=== PATIENT | male | born 1950 | race Caucasian/White ===

== ENCOUNTER 2022-11-30 10:07 | Outpatient (OUT) | payer MEDICARE, OTHER, SELFPAY ==
[2022-11-30 10:33] LABS: Basophils Absolute Auto 0.1 10^3/uL (0.0-0.1); Basophils Percent Auto 0.9 % (0.2-2.0); Eosinophils Absolute Auto 0.1 10^3/uL (0.0-0.7); Eosinophils Percent Auto 1.9 % (0.9-7.0); Hematocrit 49.3 % (42.0-54.0); Hemoglobin 15.8 g/dL (14.0-18.0); Immature Granulocytes Abs Auto 0.05 10^3/uL (0.00-0.03); Immature Granulocytes Pct Auto 0.7 % (0.0-0.5); Lymphocytes Absolute Auto 1.5 10^3/uL (1.2-3.8); Lymphocytes Percent Auto 22.7 % (20.5-60.0); Mean Corpuscular Hemoglobin 29.1 pg (25.9-34.0); Mean Corpuscular Volume 90.8 fL (80.0-94.0); Mean Platelet Volume 10.8 fL (9.5-13.5); Monocytes Absolute Auto 0.7 10^3/uL (0.3-0.8); Neutrophils Absolute Auto 4.3 10^3/uL (1.4-6.5); Neutrophils Percent Auto 63.8 % (43.0-75.0); Platelet Count 209 10^3/uL (150-450); Red Blood Count 5.43 10^6/uL (4.70-6.10); Red Cell Distribution Width 13.4 % (11.0-15.0); White Blood Count 6.8 10^3/uL (4.0-11.0)
[2022-11-30 10:49] LABS: Microalbumin Urine Random <1.3 mg/dL (<=30.0)
[2022-11-30 11:19] LABS: Estimated Average Glucose 163 mg/dL; Glycohemoglobin A1C 7.3 % (4.5-6.2)
[2022-11-30 11:36] LABS: Alanine Aminotransferase 36 U/L (16-63); Anion Gap 10.7; BUN Creatinine Ratio 16.8; Calcium 8.7 mg/dL (8.5-10.1); Carbon Dioxide 31.2 mmol/L (21.0-32.0); Chloride 103 mmol/L (98-107); Chol HDL Ratio 3.2; Cholesterol 139 mg/dL (<=200); Estimated GFR (African America >60 (>=60); Estimated GFR (Non-African Ame 51 (>=60); Glucose 112 mg/dL (74-106); HDL Cholesterol 44 mg/dL (40-60); LDL Cholesterol Calculated 72.6 mg/dL; Potassium 3.9 mmol/L (3.5-5.1); Sodium 141 mmol/L (136-145); Triglycerides 112 mg/dL (<=150); VLDL CHOLESTEROL 22.4 mg/dL
[2022-11-30 11:47] LABS: Prostate Specific Antigen Scrn 1.86 ng/mL (<=4.00)
== END 2022-11-30 10:08 | disposition home or self-care (01) ==
PROVIDERS: PCP Internal Medicine; Visit Provider Internal Medicine
DX: E11.65 Type 2 diabetes mellitus with hyperglycemia (principal); E78.2 Mixed hyperlipidemia; I10 Essential (primary) hypertension; Z12.5 Encounter for screening for malignant neoplasm of prostate; Z79.899 Other long term (current) drug therapy
CPT/HCPCS: 36415; 80048; 80061; 82043; 83036; 84460; 85025; G0103

== ENCOUNTER 2023-07-05 11:00 | Outpatient (OUT) | payer OTHER, SELFPAY ==
[2023-07-05 12:10] LABS: Estimated Average Glucose 194 mg/dL; Glycohemoglobin A1C 8.4 % (4.5-6.2)
== END 2023-07-05 11:01 | disposition home or self-care (01) ==
LOC: LAB 11:03
PROVIDERS: PCP Internal Medicine; Visit Provider Internal Medicine
DX: E11.65 Type 2 diabetes mellitus with hyperglycemia (principal)
CPT/HCPCS: 36415; 83036

== ENCOUNTER 2023-12-13 12:01 | Outpatient (OUT) | payer OTHER, SELFPAY ==
--- OUTSIDE RECORDS SUMMARY | 2023-12-13 12:21 | XMS_ITS | CCD ---
Author Organization [facility] Care Team Providers Care Group Counselor Name Role Phone Carlos Raymundo Unavailable GAYE, DR PHOENIX Attending Unavailable GAYE, DR PHOENIX Consulting Unavailable GAYE, DR PHOENIX Primary Care Unavailable GAYE, DR PHOENIX Admitting Unavailable GAYE, DR PHOENIX Primary Care Unavailable GAYE, DR PHOENIX Admitting Unavailable GAYE, DR PHOENIX Attending Unavailable GAYE, DR PHOENIX Consulting Unavailable GAYE, DR PHOENIX Primary Care Unavailable GAYE, DR PHOENIX Admitting Unavailable GAYE, DR PHOENIX Attending Unavailable Medications Current Medications Medication Drug Class(es) Dates Sig (Normalized) Sig (Original) atorvastatin 20 mg oral tablet (9 sources) HMG-CoA Reductase Inhibitor Start: 01-07-2021 End: 09-24-2023 take 20 mg by mouth once daily Atorvastatin Active 20 MG PO Daily 90 September 24, 2023 1:58pm Start: 01-07-2021 End: 01-07-2021 Atorvastatin Discontinued MG TABLET January 07, 2021 12:00am January 07, 2021 8:15am furosemide 40 mg oral tablet (5 sources) Loop Diuretic Start: 07-02-2023 take 40 mg by mouth once daily Furosemide Active 40 MG PO Daily July 02, 2023 12:00am take 1 tablet by sonia every twenty-four hours Furosemide 40 MG 1 tablet Orally Once a day for 90 days Active glipiZIDE er 10 mg 24 hr extended release oral tablet (11 sources) Sulfonylurea Start: 07-02-2023 End: 09-24-2023 take 20 mg by mouth once daily Glipizide Active 20 MG PO Daily 180 September 24, 2023 1:58pm Start: 01-07-2021 End: 07-02-2023 take 10 mg by mouth once daily Glipizide Discontinued 10 MG PO Daily January 07, 2021 12:00am July 02, 2023 8:33am Start: 01-07-2021 End: 01-07-2021 Glipizide Discontinued MG PO January 07, 2021 12:00am January 07, 2021 8:15am glipiZIDE ER 10 MG TAKE 2 TABLETS DAILY Active linagliptin 5 mg oral tablet (1 source) Dipeptidyl Peptidase 4 Inhibitor Start: 07-07-2023 take 1 tablet by mouth once daily Linagliptin (Tradjenta) 5 mg tablet Active 5 MG PO Daily 90 July 07, 2023 12:00am losartan potassium 100 mg oral tablet (9 sources) Angiotensin 2 Receptor Jack Start: 01-07-2021 End: 07-12-2023 take 100 mg by mouth once daily Losartan Active 100 MG PO Daily 90 July 12, 2023 10:33am Start: 01-07-2021 End: 01-07-2021 Losartan Discontinued MG TAB LET January 07, 2021 12:00am January 07, 2021 8:15am metFORMIN hydrochloride 1000 mg oral tablet (10 sources) Biguanide Start: 01-07-2021 End: 07-02-2023 take 1000 mg by mouth once daily Metformin Active 1000 MG PO Daily July 02, 2023 8:32am Start: 01-07-2021 End: 01-07-2021 Metformin Discontinued MG TA BLET January 07, 2021 12:00am January 07, 2021 8:15am pioglitazone 15 mg oral tablet (9 sources) Peroxisome Proliferator Receptor alpha Agonist, Peroxisome Proliferator Receptor gamma Agonist, Thiazolidinedione Start: 01-07-2021 End: 09-24-2023 Pioglitazone Active 15 MG PO As Directed September 24, 2023 1:58pm Start: 01-07-2021 End: 01-07-2021 Pioglitazone Discontinued MG TABLET January 07, 2021 12:00am January 07, 2021 8:15am Problems Problem Classification Problem Date Documented Date Episodic/Chronic Cardiac dysrhythmias (5 sources) Paroxysmal tachycardia; Translations: [Paroxysmal tachycardia, unspecified] Chronic Chronic kidney disease (4 sources) Chronic kidney disease; Translations: [Chronic kidney disease, unspecified] 07-03-2023 Chronic Chronic ulcer of skin (5 sources) Superficial skin ulcer of lower limb; Translations: [Non-pressure chronic ulcer of unspecified part of left lower leg limited to breakdown of skin] Chronic Diabetes mellitus with complications (20 sources) Hyperglycemia due to type 2 diabetes mellitus; Translations: [Type 2 diabetes mellitus with hyperglycemia] Onset: 07-03-2022 Chronic Disorders of lipid metabolism (11 sources) Mixed hyperlipidemia; Translations: [Mixed hyperlipidemia] Onset: 12-04-2021 Chronic Essential hypertension (11 sources) Essential hypertension; Translations: [Essential (primary) hypertension] Onset: 12-04-2021 Chronic Hyperplasia of prostate (4 sources) Lower urinary tract symptoms due to benign prostatic hypertrophy; Translations: [Benign prostatic hyperplasia with lower urinary tract symptoms] Chronic Other aftercare (4 sources) H/O: high risk medication; Translations: [Other half-way (current) drug therapy] Episodic Other aftercare (2 sources) Other half-way (current) drug therapy; Translations: [OTH CORRECTION CURRENT DRUG THERAPY] Onset: 12-04-2021 Episodic Other and unspecified benign neoplasm (3 sources) Benign neoplasm of colon; Translations: [Benign neoplasm of descending colon] Episodic Other and unspecified benign neoplasm (1 source) Benign neoplasm of descending colon; Translations: [Adenomatous polyp of descending colon] Episodic Other diseases of veins and lymphatics (6 sources) Peripheral venous insufficiency; Translations: [Venous insufficiency (chronic) (peripheral)] 07-03-2023 Episodic Other diseases of veins and lymphatics (5 sources) Venous insufficiency (chronic) (peripheral); Translations: [Venous (peripheral) insufficiency, unspecified] Episodic Other nutritional; endocrine; and metabolic disorders (4 sources) Morbid obesity; Translations: [Morbid (severe) obesity due to excess calories] Chronic Other nutritional; endocrine; and metabolic disorders (1 source) Morbid (severe) obesity due to excess calories Chronic Other nutritional; endocrine; and metabolic disorders (2 sources) Obesity; Translations: [Obesity, unspecified] 07-05-2023 Chronic Other nutritional; endocrine; and metabolic disorders (2 sources) Obesity, unspecified; Translations: [Obesity, unspecified] 07-05-2023 Chronic Other screening for suspected conditions (not mental disorders or infectious disease) (10 sources) Encounter for screening, unspecified; Translations: [Encounter for screening for malignant neoplasm of prostate] Onset: 12-04-2021 Episodic Results Test Name Value Interpretation Reference Range Facility GLYCOHEMOGLOBIN A1Con 2022 ADA RECOMMENDATION SEE BELOW Normal [facility] Comment on above: Result Comment: ADA RECOMMENDED LIMIT 4.0 - 6.0 ADA THERAPEUTIC TARGET < 7.0 ACTION SUGGESTED > 7.0 Performed By: #### A 1C #### [facility] [address] [place] [address] Dr. Bc Rosas Glucose [Mass/Vol] 160 mg/dL Normal [facility] Comment on above: Performed By: #### A 1C #### [facility] [address] [place] [address] Dr. Bc Rosas HbA1c (Bld) [Mass fraction] 7.2 % Critically high 4.5-6.2 [facility] Comment on above: Performed By: #### A 1C #### [facility] [address] [place] [address] Dr. Bc Rosas MICROALBUMIN URINEon 022 Albumin, Urine 8.3 ug/mL Normal Not Estab. The [facility] Comment on above: Performed By: #### M ALBLC #### [facility] [address] [place] [address] Dr. Bc Rosas CBC AUTO DIFFon 11-27-2021 BASO # 0.1 103/ul Normal 0.0-0.1 [facility] Comment on above: Performed By: #### C BC #### [facility] [address] [place] [address] Dr. Bc Rosas Basophils/100 WBC (Bld) 1.0 % Normal 0.2-2.0 [facility] Comment on above: Performed By: #### C BC #### [facility] [address] [place] [address] Dr. Bc Rosas EO # 0.1 103/ul Normal 0.0-0.7 [facility] Comment on above: Performed By: #### C BC #### [facility] [address] [place] [address] Dr. Bc Rosas Eosinophils/100 WBC (Bld) 1.7 % Normal 0.9-7.0 [facility] Comment on above: Performed By: #### C BC #### [facility] [address] [place] [address] Dr. Bc Rosas Erythrocyte distribution width (RBC) [Ratio] 13.3 % Normal 11.0-15.0 [facility] Comment on above: Performed By: #### C BC #### [facility] [address] [place] [address] Dr. Bc Rosas Hematocrit (Bld) [Volume fraction] 47.4 % Normal 42.0-54.0 [facility] Comment on above: Performed By: #### C BC #### [facility] [address] [place] [address] Dr. Bc Rosas Hemoglobin (Bld) [Mass/Vol] 15.4 g/dL Normal 14.0-18.0 [facility] Comment on above: Performed By: #### C BC #### [facility] [address] [place] [address] Dr. Bc Rosas IG # 0.03 10e3/ul Normal 0.00-0.03 [facility] Comment on above: Performed By: #### C BC #### [facility] [address] [place] [address] Dr. Bc Rosas IG % 0.5 % Normal 0.0-0.5 [facility] Comment on above: Performed By: #### C BC #### [facility] [address] [place] [address] Dr. Bc Rosas LYMPH # 1.4 103/ul Normal 1.2-3.8 [facility] Comment on above: Performed By: #### C BC #### [facility] [address] [place] [address] Dr. Bc Rosas Lymphocytes/100 WBC (Bld) 24.0 % Normal 20.5-60.0 [facility] Comment on above: Performed By: #### C BC #### [facility] [address] [place] [address] Dr. Bc Rosas MANUAL DIFF REQ NO Normal [facility] Comment on above: Performed By: #### C BC #### [facility] [address] [place] [address] Dr. Bc Rosas MCH (RBC) [Entitic mass] 29.2 pg Normal 25.9-34.0 [facility] Comment on above: Performed By: #### C BC #### [facility] [address] [address] [address] Bc Rosas MCHC (RBC) [Mass/Vol] 32.5 g/dL Normal 29.9-35.2 [facility] Comment on above: Performed By: #### C BC #### [facility] [address] [address] [address] Bc Rosas MCV (RBC) [Entitic vol] 89.9 fL Normal 80.0-94.0 [facility] Comment on above: Performed By: #### C BC #### [facility] [address] [place] [address] Dr. Bc Rosas MONO # 0.6 103/ul Normal 0.3-0.8 [facility] Comment on above: Performed By: #### C BC #### [facility] [address] [place] [address] Dr. Bc Rosas Monocytes/100 WBC (Bld) 10.0 % Normal 1.7-12.0 [facility] Comment on above: Performed By: #### C BC #### [facility] [address] [place] [address] Dr. Bc Rosas NEUT # 3.6 103/ul Normal 1.4-6.5 [facility] Comment on above: Performed By: #### C BC #### [facility] [address] [place] [address] Dr. Bc Rosas Neutrophils/100 WBC (Bld) 62.8 % Normal 43.0-75.0 [facility] Comment on above: Performed By: #### C BC #### [facility] [address] [address] [address] Bc Rosas Platelet mean volume (Bld) [Entitic vol] 11.1 fL Normal 9.5-13.5 [facility] Comment on above: Performed By: #### C BC #### [facility] [address] [address] [address] Bc Rosas PLT 189 103/ul Normal 150-450 [facility] Comment on above: Performed By: #### C BC #### [facility] [address] [address] [address] Bc Rosas RBC 5.27 106/ul Normal 4.70-6.10 [facility] Comment on above: Performed By: #### C BC #### [facility] [address] [address] [address] Bc Rosas WBC 5.8 103/ul Normal 4.0-11.0 [facility] Comment on above: Performed By: #### C BC #### [facility] [address] [address] [address] Bc Rosas GLYCOHEMOGLOBIN A1Con 2021 ADA RECOMMENDATION SEE BELOW Normal [facility] Comment on above: Result Comment: ADA RECOMMENDED LIMIT 4.0 - 6.0 ADA THERAPEUTIC TARGET < 7.0 ACTION SUGGESTED > 7.0 Performed By: #### A 1C #### [facility] [address] [place] [address] Dr. Bc Rosas Glucose [Mass/Vol] 151 mg/dL Normal [facility] Comment on above: Performed By: #### A 1C #### [facility] [address] [place] [address] Dr. Bc Rosas HbA1c (Bld) [Mass fraction] 6.9 % Critically high 4.5-6.2 [facility] Comment on above: Performed By: #### A 1C #### [facility] [address] [place] [address] Dr. Bc Rosas LIPID PROFILEon 11-27-2021 CHOL-HDL RATIO NORM SEE BELOW Normal [facility] Comment on above: Result Comment: 3.3 - 4.4 LOW RISK 4.4 - 7.1 AVERAGE RISK 7.1 - 11.0 MODERATE RISK >11.0 HIGH RISK Performed By: #### L MARCID BMP, ALT #### [facility] [address] [place] [address] Dr. Bc Rosas Cholesterol [Mass/Vol] 144 mg/dL Normal <=200 [facility] Comment on above: Performed By: #### L IPID, BMP, ALT #### [facility] [address] [address] [address] Bc Rosas Cholesterol in HDL [Mass/Vol] 45 mg/dL Normal 40-60 [facility] Comment on above: Performed By: #### L IPID, BMP, ALT #### [facility] [address] [address] [address] Bc Rosas Cholesterol in LDL [Mass/Vol] 73.0 mg/dL Normal [facility] Comment on above: Performed By: #### L IPID, BMP, ALT #### [facility] [address] [address] [address] Bc Rosas Cholesterol.total/Ch olesterol in HDL [Mass ratio] 3.2 {ratio} Normal [facility] Comment on above: Performed By: #### L IPID, BMP, ALT #### [facility] [address] [address] [address] Bc Rosas HDL NORMAL > or = 60 mg/dl - LO W CARDIOVASCULAR RISK <40 mg/dl - HIGH CARDIOVASCULAR RISK Normal [facility] Comment on above: Performed By: #### L IPID, BMP, ALT #### [facility] [address] [address] [address] Bc Rosas LDL CALC NORMAL SEE BELOW Normal [facility] Comment on above: Result Comment: <100 mg/dl OPTIMAL 100 - 129 mg/dl NEAR OR ABOVE OPTIMAL 130 - 159 mg/dl BORDERLINE HIGH 160 - 189 mg/dl HIGH >190 mg/dl VERY HIGH Performed By: #### L IPID, BMP, ALT #### [facility] [address] [address] [address] Bc Rosas Triglyceride [Mass/Vol] 130 mg/dL Normal <=150 [facility] Comment on above: Performed By: #### L IPID, BMP, ALT #### [facility] [address] [address] [address] Bc Rosas VLDL CALC 26.0 mg/dL Normal [facility] Comment on above: Performed By: #### L IPID, BMP, ALT #### [facility] [address] [address] [address] Bc Rosas PROF CHEM 8 (BAS METB)on Anion gap [Moles/Vol] 10.0 mmol/L Normal [facility] Comment on above: Performed By: #### L IPID, BMP, ALT #### [facility] [address] [address] [address] Bc Rosas Calcium [Mass/Vol] 8.9 mg/dL Normal 8.5-10.1 [facility] Comment on above: Performed By: #### L IPID, BMP, ALT #### [facility] [address] [address] [address] Bc Rosas Chloride [Moles/Vol] 104 mmol/L Normal 98-107 [facility] Comment on above: Performed By: #### L IPID, BMP, ALT #### [facility] [address] [address] [address] Bc Rosas CO2 [Moles/Vol] 30.9 mmol/L Normal 21.0-32.0 [facility] Comment on above: Performed By: #### L IPID, BMP, ALT #### [facility] [address] [address] [address] Bc Rosas Creatinine [Mass/Vol] 1.43 mg/dL Critically high 0.70-1.30 [facility] Comment on above: Performed By: #### L IPID, BMP, ALT #### [facility] [address] [address] [address] Bc Rosas EGFR-AF J[place]ICAN 59 mL/min/1.73m2 Critically low >=60 [facility] Comment on above: Performed By: #### L IPID, BMP, ALT #### [facility] [address] [address] [address] Bc Rosas EGFR-NON AF J[place] 49 mL/min/1.73m2 Critically low >=60 [facility] Comment on above: Performed By: #### L IPID, BMP, ALT #### [facility] [address] [address] [address] Bc Rosas Glucose [Mass/Vol] 103 mg/dL Normal 74-106 [facility] Comment on above: Performed By: #### L IPID, BMP, ALT #### [facility] [address] [address] [address] Bc Rosas Potassium [Moles/Vol] 3.9 mmol/L Normal 3.5-5.1 [facility] Comment on above: Performed By: #### L IPID, BMP, ALT #### [facility] [address] [address] [address] Bc Rosas Sodium [Moles/Vol] 141 mmol/L Normal 136-145 [facility] Comment on above: Performed By: #### L IPID, BMP, ALT #### [facility] [address] [address] [address] Bc Rosas Urea nitrogen [Mass/Vol] 20.0 mg/dL Critically high 7.0-18.0 [facility] Comment on above: Performed By: #### L IPID, BMP, ALT #### [facility] [address] [address] [address] Bc Rosas Urea nitrogen/Creatinine [Mass ratio] 14.0 mg/mg Normal [facility] Comment on above: Performed By: #### L IPID, BMP, ALT #### [facility] [address] [address] [address] Bc Rosas SGPTon 11-27-2021 ALT [Catalytic activity/Vol] 28 U/L Normal 16-63 [facility] Comment on above: Performed By: #### L IPID, BMP, ALT #### [facility] [address] [address] [address] Bc Rosas Glucose Poct Glucometerson 1 03-09-2020 Glucose [Mass/Vol] 149 mg/dL Normal [facility] Comment on above: Result Comment: [facility] Glucose Reference Range is dependent on time and content of last meal. Glucose of more than 200 mg/dL in a nonstressed, ambulatory subject supports the diagnosis of Diabetes Mellitus. PERFORMED BY: [address] [place] [address] PATHOLOGIST PUBLIC SPEAKING INSTRUCTOR RAE WEIBNERG M.D. Performed By: #### G STEVE #### Point of Care testing , COVID-19 Antigenon 1 COVID-19 Antigen Healthcare Worker?: N Aundrea Reference Aundrea Reference Negative SARS-CoV+SARS-CoV-2 (COVID-19) Ag [Presence] in Respiratory specimen by Rapid immunoassay Negative for SARS Antigen by LENNY COVID19 Blank Space Aundrea Disclaimer Negative results, from patients with symptom Aundrea Disclaimer onset beyond five days, should be treated as Aundrea Disclaimer presumptive and confirmation with a molecular Aundrea Disclaimer assay, if necessary, for patient management, Aundrea Disclaimer may be performed. Negative results do not rule Aundrea Disclaimer out COVID-19 and should not be used as the sole Aundrea Disclaimer basis for treatment or patient management Aundrea Disclaimer decisions, including infection control decisions. Aundrea Disclaimer Negative results should be considered in the Aundrea Disclaimer context of a patient's recent exposures, history Aundrea Disclaimer and the presence of clinical signs and symptoms Aundrea Disclaimer consistent with COVID-19. COVID19 Blank Space Aundrea Disclaimer The Aundrea SARS Antigen LENNY does not differentiate Aundrea Disclaimer between SARS-CoV and SARS-CoV-2. COVID19 Blank Space Aundrea Disclaimer This test was developed and its performance Aundrea Disclaimer characteristic determined by [employer] and Aundrea Disclaimer validated at [facility]. This Aundrea Disclaimer test has not been FDA cleared or approved. This Aundrea Disclaimer test has been authorized by FDA under an Emergency Use Aundrea Disclaimer Authorization (EUA). This test has been validated Aundrea Disclaimer in accordance with the FDA's Guidance Document (Policy Aundrea Disclaimer for Diagnostics Testing in Laboratories Certified to Aundrea Disclaimer Perform High Complexity Testing under CLIA prior to Aundrea Disclaimer Emergency Use Authorization for Coronavirus Aundrea Disclaimer iseas during the Public Health Emergency) Aundrea Disclaimer issued on June 08, 2019. This test is only authorized Aundrea Disclaimer for the duration of time the declaration that Aundrea Disclaimer circumstances exist justifying the authorization of Aundrea Disclaimer the emergency use of in vitro diagnostic tests for Aundrea Disclaimer detection of SARS-CoV-2 virus and/or diagnosis of Aundrea Disclaimer COVID-19 infection under section 564(b)(1) of the Aundrea Disclaimer Act, 21 U.S.C. 360bbb-3(b)(1), unless the Aundrea Disclaimer authorization is terminated or revoked sooner. PERFORMED BY: [place] [address] PATHOLOGIST PUBLIC SPEAKING INSTRUCTOR RAE WEINBERG M.D. Normal [facility] Comment on above: Performed By: #### S PARI COVID-19 AUNDREA #### [address] Aundrea Ag Negativeon 01-04-20 21 Aundrea Ag Negative Negative Normal Negative [place] Comment on above: Result Comment: This is a duplicate Aundrea SARS Antigen (LENNY) result to be used for statistical tracking purpose only. PERFORMED BY: [place] [address] PATHOLOGIST PUBLIC SPEAKING INSTRUCTOR RAE WEINBERG M.D. Performed By: #### S OFLUZ ELENA COVID-19 AUNDREA #### [address] Coding Summary.on 12-30-2018 Coding Summary. 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 SECONDARY: E11.22 Type 2 diabetes mellitus with diabetic chronic kidney disease N18.3 Chronic kidney disease, stage 3 (moderate) I12.9 Hypertensive chronic kidney disease with stage 1 through stage 4 chronic kidney disease, or unspecified chronic kidney disease E78.00 Pure hypercholesterolemia, unspecified Z86.718 Personal history of other venous thrombosis and embolism Z79.82 correction (current) use of aspirin Z79.84 correction (current) use of oral hypoglycemic drugs PYMT PROC APC STAT DESCRIPTION DOCTOR NAME DATE 36095 5164 J1 Excision, lesion of Kristin Berumen MD 12/29/2018 palate, uvula; without closure 01377 Anesthesia for intraoral Kannan Miller Jr., DO 12/29/2018 procedures, including biopsy; not otherwise specified NOTE: The code number assigned matches the documented diagnosis and / or procedure in the patient's chart. However, the narrative phrase printed from the coding software may appear abbreviated, or result in slightly different terminology. Revised Coded By: Neha Parsons Revised Date Saved: 12/30/2018 03:41 pm Normal [facility] Main OR Intraoperative Recor don 12-30-2018 Main OR Intraoperative Record IntraOp Document Type FT Summary Primary Physician: Kristin Berumen MD Finalized Date/Time: 12/30/18 13:43:52 Pt. Name: RENO GREGORY/Sex: 1950 Male Med Rec #: [id number] Physician: Kristin Berumen MD Financial #: [id number] Pt. Type: A Room/Bed: Admit/Disch: 12/29/18 09:23:00 - 12/29/18 13:50:00 Institution: Case Times FT Entry 1 Patient Times In Room 12/29/18 11:46:00 Out Room 12/29/18 12:17:00 Procedure Times Start 12/29/18 11:55:00 Stop 12/29/18 12:12:00 Anesthesia Times Start 12/29/18 11:46:00 Stop 12/29/18 12:17:00 Last Modified By: Soy LOGAN Clarisa 12/29/18 12:19:53 General Comments: 12/30/18 Chart opened to review and send charges Didier Olivier CST Case Attendance FT Entry 1 Entry 2 Entry 3 Case Attendee Sameer ORTIZ, Carmina Berumen MD, Kristin Garcia RN, Balwinder Hoyos Role Performed Anesthesiologist Surgeon - Primary Mine Expert - Primary Lace And Textiles Restorer Time In 12/29/18 11:46:00 12/29/18 11:46:00 12/29/18 11:46:00 Time Out 12/29/18 12:17:00 12/29/18 12:17:00 12/29/18 12:17:00 Procedure TONSILLECTOMY(Right) TONSILLECTOMY(Right) TONSILLECTOMY(Right) Comments DR MILLER SUPERVISING lunch from 1200 to 1230 Last Modified By: Darien RN, CNOR, Darien RN, YAMILKAOR, Darien RN, YAMILKAOR, [place] 12/29/18 [place] 12/29/18 [place] 12/29/18 12:19:55 12:19:55 12:19:55 Entry 4 Entry 5 Entry 6 Case Attendee Kody VELASQUEZ, Elvira Canales LEAD ATHLETE/SA, Annika Ledezma RN, YAMILKAOR, [place] Role Performed Mine Expert - Primary Scrub - Primary Mine Expert - Relief Time In 12/29/18 11:46:00 12/29/18 11:46:00 12/29/18 11:46:00 Time Out 12/29/18 12:17:00 12/29/18 12:17:00 12/29/18 12:17:00 Procedure TONSILLECTOMY(Right) TONSILLECTOMY(Right) TONSILLECTOMY(Right) Comments LUNCH FROM 1145 TILL 1215 Last Modified By: Darien RN, CNOR, Darien RN, CNOR, Darien RN, CNOR, [place] 12/29/18 [place] 12/29/18 [place] 12/29/18 12:19:55 12:19:55 12:19:55 Perioperative Protocols FT Pre-Care Text: Implements protective measures prior to operative or invasive procedure, confirms identity before the operative or invasive procedure, verifies operative procedure, surgical site, and laterality Entry 1 Procedure(s) TONSILLECTOMY(Right) Patient Identity Birthday, ID Band Verified (select at Check, Patient least 2): Participation Consents / H and P Anesthesia Consent, Operative Site N/A Verified HandP, Surgery/Procedure Marking Verified Consent Surgical Site Yes Laterality Verified n/a Verified Procedure Verified Yes Correct Patient Yes Position Verified Availability Equipment, Medication Prep Dry n/a Verified (If Applicable) PreOp Antibiotic No Time Out Carmina Womack, Given Participants Ata HARDIN, Kristin Anglin, Radha VELASQUEZ, Parker Najera LEAD ATHLETE/SA, Darien Roblero RN, [place] CARROLL Time Out Complete 12/29/18 11:54:00 Outcomes Met? Yes Last Modified By: GLEN Ledezma RN, Ruthann 12/29/18 11:58:11 Post-Care Text: The patient is free from signs and symptoms of injury caused by extraneous objects Allergy Information FT Pre-Care Text: Verifies allergies Entry 1 Allergies Reviewed? Yes Allergies Reviewed Self/Patient With Outcomes Met? Yes Last Modified By: GLEN Ledezma RN, Ruthann 12/29/18 11:50:52 Post-Care Text: The patient received appropriate medication(s) safely administered during the perioperative period Surgical Procedures FT Entry 1 Procedure Description Procedure TONSILLECTOMY Modifiers Right Surgeon Description REMOVAL OF RIGHT PALATE LESION Primary Procedure Yes Primary Surgeon Ata HARDIN, Kristin Anglin Start 12/29/18 11:55:00 Stop 12/29/18 12:09:00 Anesthesia Type General Surgical Service ENT Wound Class 2 - Clean-Contaminated Last Modified By: GLEN Ledezma RN, Ruthann 12/29/18 12:12:08 General Case Data FT Pre-Care Text: Classifies surgical wound, implements aseptic technique, initiates traffic control Entry 1 Case Information OR OR 2 FT Case Level Level 2 Wound Class 2 - Clean-Contaminated Specialty ENT ASA Class 3 Preop Diagnosis RIGHT PALATE LESION Postop Same As Preop Yes Postop Diagnosis RIGHT PALATE LESION Outcomes Met? Yes Last Modified By: GLEN Ledezma RN, Ruthann 12/29/18 11:51:06 Post-Care Text: The patient is free from signs and symptoms of infection Skin Assessment (Pre Procedure) FT Pre-Care Text: Implements protective measures to prevent skin/ tissue injury due to thermal or mechanical sources Evaluates for signs and symptoms of physical injury to skin and tissue Entry 1 Skin Integrity Intact Skin Abnormality No Outcomes Met? Yes Last Modified By: GLEN Ledezma RN, Ruthann 12/29/18 11:51:18 Post-Care Text: The patient is free from signs and symptoms of injury caused by extraneous objects Patient Positioning FT Pre-Care Text: Identifies physical alterations that require additional precautions for procedure-specific positioning, verifies presence of prosthetics or corrective devices, positions the patient, evaluates the patient for signs and symptoms of injury as a result of positioning Entry 1 Procedure TONSILLECTOMY(Right) Body Position Supine Feet Uncrossed? Yes Left Arm Position Tucked and Padded at Side Right Arm Position Tucked and Padded at Left Leg Position Extended Side Right Leg Position Extended Positioning Device Safety Strap, Shoulder Roll(s) Press Points Checked Yes By Carmina Womack Timmis MD, Radha Bruno RN, Kail M Outcomes Met? Yes Last Modified By: GLEN Ledezma RN, Ruthann 12/29/18 11:53:45 Post-Care Text: The patient is free from signs and symptoms of injury related to positioning Patient Care Devices FT Pre-Care Text: Implements protective measures to prevent skin/ tissue injury due to thermal or mechanical sources Entry 1 Entry 2 Entry 3 Equipment Type HEADLIGHT[F] CAUTERY UNIT[F] MONITOR CHARGE SURGERY [F] Equipment Number [id number] Equipment Setting Outcomes Met? Yes Yes Yes Last Modified By: GLEN Ledezma RN, GLEN Ledezma RN, GLEN Ledezma RN, [place] 12/29/18 [place] 12/29/18 [place] 12/29/18 11:54:25 11:54:25 11:54:25 Post-Care Text: The patient is free from signs and symptoms of injury caused by extraneous objects Transport To OR FT Pre-Care Text: Transports according to individual needs. Evaluates for signs and symptoms of skin and tissue injury as a result of transfer or transport Entry 1 Via Cart By Balwinder Garcia RN Safety Precautions Side Rails Up Outcomes Met? Yes Last Modified By: GLEN Ledezma RN, Ruthann 12/29/18 11:57:03 Post-Care Text: The patient is free from signs and symptoms of injury related to transfer/transport Cautery FT Pre-Care Text: Implements protective measures to prevent injury due to electrical sources, and evaluates for signs and symptoms of electrical injury Entry 1 ESU Identification ESU Settings Cut 0 Coag 20 ESU Grounding Pad Hair Removal Pad No Post Pad Site Clear and Intact Site Condition Outcomes Met? Yes Last Modified By: GLEN Ledezma RN, Ruthann 12/29/18 11:57:47 Post-Care Text: The patient if free from signs and symptoms of electrical injury Counts Verification FT Pre-Care Text: Performs required counts Entry 1 Procedure(s) TONSILLECTOMY(Right) Type Initial Items Brett Status Correct Time 12/29/18 11:55:00 By Parker LOGAN/SA, Darien Roblero RN, [place] CARROLL Outcomes Met? Yes Last Modified By: GLEN Ledezma RN, Ruthann 12/29/18 11:58:49 Post-Care Text: The patient is free from signs and symptoms of injury caused by extraneous objects Departure From OR FT Pre-Care Text: Transports according to individual needs. Evaluates for signs and symptoms of skin and tissue injury as a result of transfer or transport. Entry 1 Via Cart Safety Precautions Side Rails Up PostOp Destination PACU Transported By Elvira Gates RN Patient Status Stable Skin. Condition Intact Airway Maintenance Oxygen in Use? Yes Airway Device Simple Mask Flow Rate 10 Outcomes Met? Yes Last Modified By: GLEN Ledezma RN, Ruthann 12/29/18 12:00:20 Post-Care Text: The patient is free from signs and symptoms of injury related to transfer/transport Medication Administration FT Pre-Care Text: Verifies allergies, administers prescribed medications and solutions, administers prescribed antibiotic therapy and immunizing agents as ordered, evaluates response to medications Administers prescribed medications and solutions Entry 1 Expiration Date Yes Outcomes Met? Yes Verified Last Modified By: GLEN Ledezma RN, Ruthann 12/29/18 12:00:28 Post-Care Text: The patient received appropriate medication(s) safely administered during the perioperative period For Maynard-Farzad please see scanned medication reconcilliation form for medications used at the field during the procedure. Cultures and Specimens FT Pre-Care Text: Manages specimen handling and disposition Manages culture specimen collection Entry 1 Cultures Ordered No Specimens Ordered Yes Specimen Disposition Designated OR Area Frozen Section Times Outcomes Met? Yes Last Modified By: GLEN Ledezma RN, Ruthann 12/29/18 12:00:48 Post-Care Text: The patient is free from signs and symptoms of injury caused by extraneous objects The patient is free from signs and symptoms of infection Case Comments Finalized By: Clarisa Olivier CST Document Signatures Signed By: GLEN Ledezma RN, Ruthann 12/29/18 12:19 Clarisa Olivier CST 12/30/18 13:43 Clarisa Olivier CST 12/30/18 13:43 [facility] Inpatient Patient Summaryon 12-29-2018 Inpatient Patient Summary [facility] Clinical Discharge Instructions PERSON INFORMATION Name: RENO GREGORY [facility] Admitting Physician: Kristin Berumen MD Attending Physician: Kristin Berumen MD PCP: CARLOS RAYMUNDO DO Diagnosis: Lesion of soft palate Comment: PATIENT EDUCATION INFORMATION Instructions: Medication Leaflets: Follow up: With: Address: When: Kristin Berumen Comments: Keep scheduled appointment MEDICATION LIST Comment: [facility] Main OR PACU I Recordon 12-07 Main OR PACU I Record PACU Phase I Document Type FT Summary Primary Physician: Kristin Berumen MD Finalized Date/Time: 12/29/18 13:09:21 Pt. Name: RENO GREGORY /Sex: 1950 Male Med Rec #: [id number] Physician: Kristin Berumen MD Financial #: [id number] Pt. Type: A Room/Bed: [facility] Admit/Disch: 12/29/18 09:23:36 - Institution: Case Times PACU I FT Pre-Care Text: Identifies barriers to communication and implements measures to provide psychological support Develops individualized plan of care, and ensures continuity of care Maintains patient's dignity and privacy, and maintains patient confidentiality Identifies and reports philosophical, cultural, and spiritual beliefs and values Identifies individual values and wishes concerning care Implements aseptic technique, and administers prescribed antibiotic therapy and immunizing agents as ordered Evaluates postoperative tissue perfusion Implements thermoregulation measures, and monitors body temperature Evaluates postoperative respiratory status Evaluates postoperative cardiac status Evaluates postoperative neurological status Assesses pain control, collaborated in initiating patient-controlled analgesia and implements alternative methods of pain control Verifies allergies, administers prescribed medications and solutions, evaluates response to medications Entry 1 In PACU I 12/29/18 12:18:00 Discharge from PACU 12/29/18 12:48:00 I Outcomes Met? Yes Last Modified By: Ping King RN 12/29/18 13:09:04 Post-Care Text: The patient demonstrates knowledge of the expected response to the operative or invasive procedure The patient's care is consistent with the individualized perioperative plan of care The patient's right to privacy is maintained The patient's value system, lifestyle, ethnicity, and culture are considered, respected, and incorporated into the perioperative plan of care The patient participates in decisions affecting his or her perioperative plan of care The patient is free from signs and symptoms of infection The patient has wound/tissue perfusion consistent with or improved from baseline levels established preoperatively The patient is at or returning to normothermia at the conclusion of the immediate postoperative period The patient's respiratory function is consistent with or improved from baseline levels established preoperatively The patient's cardiovascular status is consistent with or improved from baseline levels established preoperatively The patient's cardiovascular status is consistent with or improved from baseline levels established preoperatively The patient demonstrates and/or reports adequate pain control throughout the perioperative period The patient received appropriate medication(s), safely administered during the perioperative period Acuity Level PACU I FT Entry 1 Start Time 12/29/18 12:18:00 Stop Time 12/29/18 12:48:00 Acuity Level Acuity Level I Last Modified By: Ping King RN 12/29/18 13:09:17 Finalized By: Ping King RN Document Signatures Signed By: Ping King RN 12/29/18 13:09 [facility] Main OR PACU II Recordon Main OR PACU II Record PACU Phase II Document Type FT Summary Primary Physician: Kristin Berumen MD Finalized Date/Time: 12/29/18 13:52:28 Pt. Name: RENO GREGORY Flora ShahB./Sex: 1950 Male Med Rec #: [id number] Physician: Kristin Berumen MD Financial #: [id number] Pt. Type: A Room/Bed: [place] [address] Admit/Disch: 12/29/18 09:23:36 - Institution: Case Times PACU II FT Pre-Care Text: Identifies barriers to communication and implements measures to provide psychological support and determines knowledge level Develops individualized plan of care, and ensures continuity of care Maintains patient's dignity and privacy, and maintains patient confidentiality Identifies and reports philosophical, cultural, and spiritual beliefs and values Identifies individual values and wishes concerning care administers prescribed antibiotic therapy and immunizing agents as ordered, Evaluates postoperative tissue perfusion Implements thermoregulation measures, and monitors body temperature Evaluates postoperative respiratory status Evaluates postoperative cardiac status Evaluates postoperative neurological status Assesses pain control, collaborated in initiating patient-controlled analgesia and implements alternative methods of pain control Verifies allergies, administers prescribed medications and solutions, evaluates response to medications Entry 1 In PACU II 12/29/18 12:50:00 Discharge from PACU 12/29/18 13:50:00 II Outcomes Met? Yes Last Modified By: Valentina Lorenzo LPN 12/29/18 13:52:26 Post-Care Text: The patient demonstrates knowledge of the expected response to the operative or invasive procedure The patient's care is consistent with the individualized perioperative plan of care The patient's right to privacy is maintained The patient's value system, lifestyle, ethnicity, and culture are considered, respected, and incorporated into the perioperative plan of care The patient participates in decisions affecting his or her perioperative plan of care. The patient is free from signs and symptoms of infection The patient has wound/tissue perfusion consistent with or improved from baseline levels established preoperatively The patient is at or returning to normothermia at the conclusion of the immediate postoperative period The patient's respiratory function is consistent with or improved from baseline levels established preoperatively The patient's cardiovascular status is consistent with or improved from baseline levels established preoperatively The patient's neurological status is consistent with or improved from baseline levels established preoperatively The patient demonstrates and/or reports adequate pain control throughout the perioperative period The patient received appropriate medication(s), safely administered during the perioperative period Finalized By: Valentina Lorenzo LPN Document Signatures Signed By: Valentina Lorenzo LPN 12/29/18 13:52 [facility] Operative Reporton 9 Operative Report Date of Surgery: 12/29/2018 SURGEON: Kristin Berumen Jr., M.D. PREOPERATIVE DIAGNOSIS: Right soft palate lesion POSTOPERATIVE DIAGNOSIS: Right soft palate lesion OPERATION: Removal of right soft palate lesion ANESTHESIA: General endotracheal COMPLICATIONS: None FINDINGS: 5 mm verrucous lesion of the right anterior soft palate. 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 PROCEDURE: The patient identified in the Holding Area and taken back to the Operating Room where he was placed in supine position. After induction of general endotracheal anesthesia, the table was turned and a McIvor mouth gag inserted with care taken to ovoid injury to the lips, teeth and tongue. The area around the lesion was infiltrated with lidocaine 1% with 1:100,000 epinephrine. After waiting adequate time for hemostasis, a Falls tip Bovie was used to first outline an incision around the lesion leaving a 2-3 mm rim of normal-appearing mucosa around the lesion. After making incisions through the mucosa using the Falls tip Bovie, the lesion was undermined and sent for pathologic analysis. Hemostasis was achieved with suction Bovie. The oral cavity was then irrigated and the patient was awakened and taken to the Recovery Room in good condition. Kristin Berumen Jr., M.D. gls Dictated: 12/29/2018 #[id number] Typed: 12/29/2018 #[id number] cc: Alyssa Kim Jr., M.D. [facility] Comment on above: Result Comment: Elec tronically Signed By: Kristin Berumen MD\.br\Date and Time Signed: 12/29/18 13:07 EDT Operative Report Patient: RENO GREGORY Age: 68 years Sex: Male : 1950 Associated Diagnoses: None Author: Kristin Berumen MD Postoperative Information Procedure: R/O RT soft palate lesion Preoperative Diagnosis: Lesion of soft palate ([id number] K13.79, Working, Medical). Postoperative Diagnosis: Lesion of soft palate ([id number] K13.79, Discharge, Medical). Performed by: Kristin Berumen MD Findings: 5mm verucous SP lesion. Estimated Blood Loss: 5 ml. Medications Complications: None. [facility] Comment on above: Result Comment: Elec tronically Signed By: Ata HARDIN, Kristin Anglin\.juanpablo\Date and Time Signed: 12/29/18 12:24 EDT Patient Education - Texton 1 Patient Education - Text [facility] Coding Summary.on 12-16-2018 Coding Summary. CODING DATE: 12/16/2018 FINAL [facility] STATUS: Home (Routine DC) PAYOR: Medicare APC DESCRIPTION 5521 Level 1 Imaging without Contrast ADMIT DX: REASON FOR VISIT DX: Z01.818 Encounter for other preprocedural examination FINAL DX: PRINCIPAL: Z01.818 Encounter for other preprocedural examination SECONDARY: K13.70 Unspecified lesions of oral mucosa PYMT PROC APC STAT DESCRIPTION DOCTOR NAME DATE NOTE: The code number assigned matches the documented diagnosis and / or procedure in the patient's chart. However, the narrative phrase printed from the coding software may appear abbreviated, or result in slightly different terminology. Coded By: Holly Middleton CphT Date Saved: 12/16/2018 12:50 pm [facility] Auto Diffon 12-15-2018 Basophils/100 WBC (Bld) 0.9 % Normal 0.0-2.0 [facility] Comment on above: Order Comment: Order Added by Discern Expert. Performed By: #### 2 [id number], [id number] #### [facility] [address] [place] [address] Basophils/Leukocytes Auto (Bld) [Pure # fraction] 0.0 E9/L Normal 0.0-0.2 [facility] Comment on above: Order Comment: Order Added by Discern Expert. Performed By: #### 2 [id number], [id number] #### [facility] [address] [place] [address] Eosinophils/100 WBC (Bld) 1.7 % Normal 0.0-8.0 [facility] Comment on above: Order Comment: Order Added by Discern Expert. Performed By: #### 2 969681, [id number] #### [facility] [address] [place] [address] Eosinophils/Leukocyt es Auto (Bld) [Pure # fraction] 0.1 E9/L Normal 0.0-0.5 [facility] Comment on above: Order Comment: Order Added by Discern Expert. Performed By: #### 2 897065, [id number] #### [facility] [address] [place] [address] Lymphocytes/100 WBC (Bld) 28.3 % Normal 14.0-50.0 [facility] Comment on above: Order Comment: Order Added by Discern Expert. Performed By: #### 2 276979, [id number] #### [facility] [address] [place] [address] Lymphocytes/Leukocyt es Auto (Bld) [Pure # fraction] 1.4 E9/L Normal 1.0-4.0 [facility] Comment on above: Order Comment: Order Added by Discern Expert. Performed By: #### 2 [id number], [id number] #### [facility] [address] [place] [address] Monocytes/100 WBC (Bld) 9.8 % Normal 4.0-14.0 [facility] Comment on above: Order Comment: Order Added by Discern Expert. Performed By: #### 2 845246, [id number] #### [facility] [address] [place] [address] Monocytes/Leukocytes Auto (Bld) [Pure # fraction] 0.5 E9/L Normal 0.2-1.0 [facility] Comment on above: Order Comment: Order Added by Discern Expert. Performed By: #### 2 771623, [id number] #### [facility] [address] [place] [address] Neutrophils/100 WBC (Bld) 59.3 % Normal 36.0-75.0 [facility] Comment on above: Order Comment: Order Added by Discern Expert. Performed By: #### 2 570620, [id number] #### [facility] [address] [place] [address] Neutrophils/Leukocyt es Auto (Bld) [Pure # fraction] 2.9 E9/L Normal 2.0-7.5 [facility] Comment on above: Order Comment: Order Added by Discern Expert. Performed By: #### 2 982521, [id number] #### [facility] [address] [place] [address] BUNon 12-15-2018 Urea nitrogen [Mass/Vol] 26 mg/dL High 5-21 [facility] Comment on above: Performed By: #### 2 716895, 8674509, [id number], 2985756, 7556532 #### [facility] [address] [place] [address] CBC w/ Auto Diffon 9 Erythrocyte distribution width (RBC) [Ratio] 13.8 % Normal 10.9-14.2 [facility] Comment on above: Performed By: #### 2 715921, [id number] #### [facility] [address] [place] [address] Hematocrit (Bld) [Volume fraction] 47.8 % Normal 37.7-49.0 [facility] Comment on above: Performed By: #### 2 635292, [id number] #### [facility] [address] [place] [address] Hemoglobin (Bld) [Mass/Vol] 16.3 g/dL Normal 13.5-17.5 [facility] Comment on above: Performed By: #### 2 669215, 5966614 #### [facility] [address] [place] [address] MCH (RBC) [Entitic mass] 29.7 pg Normal 27.0-34.0 [facility] Comment on above: Performed By: #### 2 929970, 3733425 #### [facility] [address] [place] [address] MCHC (RBC) [Mass/Vol] 34.0 g/dL Normal 33.3-35.7 [facility] Comment on above: Performed By: #### 2 496360, 7784828 #### [facility] [address] [place] [address] MCV (RBC) [Entitic vol] 87.2 fL Normal 80.0-100.0 [facility] Comment on above: Performed By: #### 2 071885, 7112330 #### [facility] [address] [place] [address] Platelet mean volume (Bld) [Entitic vol] 9.2 fL Normal 6.4-10.8 [facility] Comment on above: Performed By: #### 2 154100, 5231516 #### [facility] [address] [place] [address] Platelets (Bld) [#/Vol] 180.0 E9/L Normal 150.0-500.0 [facility] Comment on above: Performed By: #### 2 868699, 2820196 #### [facility] [address] [place] [address] RBC (Bld) [#/Vol] 5.5 E12/L Normal 4.3-5.9 [facility] Comment on above: Performed By: #### 2 595730, 6334858 #### [facility] [address] [place] [address] WBC corrected for nucl RBC Auto (Bld) [#/Vol] 4.9 E9/L Normal 4.0-11.0 [facility] Comment on above: Performed By: #### 2 153758, 4727687 #### [facility] [address] [place] [address] Creatinineon 12-15-2018 Creatinine [Mass/Vol] 1.2 mg/dL Normal 0.5-1.3 [facility] Comment on above: Performed By: #### 2 791154, 3053374, 24165751, 5120399, 1760229 #### [facility] [address] [place] [address] Glucoseon 12-15-2018 Glucose [Mass/Vol] 204 mg/dL High 55-199 [facility] Comment on above: Performed By: #### 2 221866, 8953962, [id number], 8485425, 0781950 #### [facility] [address] [place] [address] Lyteson 12-15-2018 Anion gap [Moles/Vol] 15 mmol/L Normal 6-16 [facility] Comment on above: Performed By: #### 2 342388, 5812404, 57980620, 0129875, 0535553 #### [facility] [address] [place] [address] Chloride [Moles/Vol] 103 mmol/L Normal 101-111 [facility] Comment on above: Performed By: #### 2 977936, 1463272, 43756764, 8491974, 9564351 #### [facility] [address] [place] [address] CO2 [Moles/Vol] 25 mmol/L Normal 21-31 [facility] Comment on above: Performed By: #### 2 794643, 7407081, [id number], 9631959, 7435884 #### [facility] [address] [place] [address] Potassium [Moles/Vol] 4.5 mmol/L Normal 3.5-5.3 [facility] Comment on above: Performed By: #### 2 767888, 9643123, 75196361, 8287465, 9681579 #### [facility] [address] [place] [address] Sodium [Moles/Vol] 138 mmol/L Normal 135-145 [facility] Comment on above: Performed By: #### 2 055934, 9859781, [id number], 3870051, 5659822 #### [facility] [address] [place] [address] XR Chest 2 Viewson 9 XR Chest 2 Views Exam Date/Time: 12/15/2018 13:30 EDT Reason for Exam: Pre Op Report IMPRESSION: NO EVIDENCE OF ACTIVE CHEST DISEASE. CLINICAL HISTORY: Pre Op. COMMENT: The heart is normal in size. The mediastinum is unremarkable. The lungs appear clear. No infiltration nor pleural effusion is evident. FINAL REPORT Dictated: 12/15/2018 3:22 pm Reno Arcos M.D. Signed (Electronic Signature): 12/15/2018 3:22 pm Signed by: Reno Arcos M.D. Transcribed by: LILI Technologist: TAINA Hernandez [facility] eGFRon 12-15-2018 GFR/1.73 sq M predicted among blacks MDRD (S/P/Bld) [Vol rate/Area] mL/min/{1.73_m2} Normal >=59 [facility] Comment on above: Order Comment: Order added by Discern Expert. Result Comment: eGFR is race adjusted. AA=. Performed By: #### 2 413368, 7139365, 11592029, 4884168, 5210843 #### [facility] [address] [place] [address] GFR/1.73 sq M predicted among non-blacks MDRD (S/P/Bld) [Vol rate/Area] 60 mL/min/1.73 m2 Normal >=59 [facility] Comment on above: Order Comment: Order added by Discern Expert. Result Comment: Shoulder Boner chauncey kidney disease could be indicated at eGFR's of less than 60 mL/min/1.73m2. Kidney failure is indicated at less than 15 mL/min/1.73m2. Performed By: #### 2 [id number], [id number], [id number] #### [facility] [address] [place] [address] Vital Signs Date Time Vital Sign Value Performing Clinician Facility 12-02-2023 10:00-0400 Body mass index (BMI) [Ratio] 42.7 kg/m2 [facility] 12-02-2023 10:00-0400 Diastolic blood pressure 82 mm[Hg] [facility] 12-02-2023 10:00-0400 Heart rate 90 /min [facility] 12-02-2023 10:00-0400 SaO2% (BldA) [Mass fraction] 97 % [facility] 12-02-2023 10:00-0400 Systolic blood pressure 136 mm[Hg] [facility] 12-02-2023 09:57-0400 Body height 165.1 cm [facility] 12-02-2023 09:57-0400 Body weight 116.57 kg [facility] 07-05-2023 10:14-0400 Body height 165.1 cm [facility] 07-05-2023 10:14-0400 Body mass index (BMI) [Ratio] 43.1 kg/m2 [facility] 07-05-2023 10:14-0400 Body weight 117.65 kg [facility] 07-05-2023 10:14-0400 Diastolic blood pressure 98 mm[Hg] [facility] 07-05-2023 10:14-0400 Heart rate 96 /min [facility] 07-05-2023 10:14-0400 Respiratory rate 12 /min [facility] 07-05-2023 10:14-0400 Systolic blood pressure 154 mm[Hg] [facility] 11-30-2022 09:00-0400 Body height 165.1 cm Carlos Ball Other [facility] Other 11-30-2022 09:00-0400 Body mass index (BMI) [Ratio] 42.83 kg/m2 Carlos Ball Other [employer] [facility] Other 11-30-2022 09:00-0400 Body weight 116.76 kg Carlos Ball Other [employer] [facility] Other 11-30-2022 09:00-0400 Diastolic blood pressure 82 mm[Hg] Carlos Ball Other [employer] [facility] Other 11-30-2022 09:00-0400 Respiratory rate 12 /min Carlos Ball Other [employer] [facility] Other 11-30-2022 09:00-0400 Systolic blood pressure 148 mm[Hg] Carlos Ball Other [employer] Other 07-03-2022 10:30-0400 Body height 165.1 cm Carlos Ball Other [employer] Other 07-03-2022 10:30-0400 Body mass index (BMI) [Ratio] 43.1 kg/m2 Carlos Ball Other [employer] Other 07-03-2022 10:30-0400 Body weight 117.48 kg Carlos Ball Other [employer] Other 07-03-2022 10:30-0400 Diastolic blood pressure 90 mm[Hg] Carlos Ball Other [employer] Other 07-03-2022 10:30-0400 Respiratory rate 12 /min Carlos Ball Other [employer] Other 07-03-2022 10:30-0400 Systolic blood pressure 157 mm[Hg] Carlos Ball Other [employer] Other Encounters Encounter Date Encounter Type Care Provider Facility Start: 12-02-2023 End: 12-02-[address] [facility] Work Phone: Start: 12-02-2023 End: 12-02-2023 Patient encounter procedure [facility] Work Phone: Start: 11-30-2023 Patient encounter procedure [facility] Start: 07-05-2023 End: 07-05-2023 ambulatory [facility] Work Phone: Start: 07-05-2023 End: 07-05-2023 Patient encounter procedure [facility] Work Phone: Start: 12-01-2022 End: 12-01-2022 ambulatory Carlos Ball Other [employer] Other Start: 12-01-2022 Telephone encounter Carlos Raymundo [facility] Start: 11-30-2022 End: 11-30-2022 ambulatory Carlos Raymundo Other [employer] Other Start: 11-30-2022 Patient encounter procedure Carlos Raymundo [facility] Start: 07-03-2022 Office outpatient vi sit 25 minutes Carlos Raymundo [facility] Start: 07-03-2022 End: 07-04-[address] CARLOS RAYMUNDO [facility] Other Start: 06-30-2022 End: 07-01-[address] CARLOS RAYMUNDO Facility:[facility]1 Start: 11-27-2021 End: 11-28-[address] CARLOS RAYMUNDO Facility:[facility] Procedures Date Procedure Procedure Detail Performing Clinician Start: 11-27-[address] [place] Comment on above: Performed By: #### P [facility] #### [facility] [address] [place] [address] Dr. Bc Rosas Start: 01-11-2019 Anesthesia consultation Start: 12-29-2018 Anesthesia consultation Plan of Treatment Date Care Activity Detail Author Comprehensive metabo lic 2000 panel - Serum or Plasma [facility] enter Microalbumin [Mass/volume] in Urine [facility] Immunizations Immunization Date Immunization Notes Care Provider Fa cility 12-02-2023 influenza, high dose seasonal, preservative-free [facility] 11-30-2022 influenza virus vaccine, unspecified formulation [facility] 11-30-2022 influenza, high dose seasonal, preservative-free Carlos Raymundo Other [employer] Other 11-27-2021 influenza virus vaccine, split virus (incl. purified surface antigen) Carlos Raymundo Other [employer] Other 11-27-2021 influenza virus vaccine, unspecified formulation [facility] 12-30-2020 COVID-19 Vaccine Moderna - Documentation Purposes Only Carlos Raymundo Other [facility] 11-26-2020 influenza virus vaccine, split virus (incl. purified surface antigen) Carlos Raymundo Other [employer] [facility] Other 11-26-2020 influenza virus vaccine, unspecified formulation [facility] 06-15-2020 COVID-19 mRNA-1273 (Moderna) [facility] 04-12-2020 COVID-19 mRNA-1273 (Moderna) [facility] 11-27-2019 influenza virus vaccine, split virus (incl. purified surface antigen) Carlos Raymundo Other [facility] Other 11-27-2019 influenza virus vaccine, unspecified formulation [facility] 12-15-2016 influenza virus vaccine, split virus (incl. purified surface antigen) Carlos Raymundo Other [facility] Other 12-15-2016 influenza virus vaccine, unspecified formulation [facility] 12-15-2016 pneumococcal polysaccharide vaccine, 23 valent Carlos Raymundo Other [facility] 12-31-2014 pneumococcal conjuga te vaccine, 13 valent Carlos Raymundo Other [facility] 12-24-2014 influenza virus vaccine, split virus (incl. purified surface antigen) Carlos Raymundo Other [facility] Other 12-24-2014 influenza virus vaccine, unspecified formulation [facility] 01-06-2013 tetanus and diphther ia toxoids, adsorbed, preservative free, for adult use (5 Lf of tetanus toxoid and 2 Lf of diphtheria toxoid) Carlos Raymundo Other [facility] Payers Date Payer Category Payer Medicare [id number] [id number] [id number] 1960 Unknown [id number] 1950 Unknown [id number] 1950 Unknown [id number] 1950 Unknown [id number] Medicare [employer] [facility] PF [id number] Self-pay Self Pay [id number] Social History Date Type Detail Facility Sex Assigned At [facility] Other Start: 01-07-2021 End: 12-02-2023 Tobacco smoking status NHIS Ex-smoker (finding) [facility] Start: 1950 Sex Assigned At Male [facility] Evaluation note 12-01-2022 Note Date & Type Note Facility 12-01-2022 Evaluation note Encounter Date Diagnosis Assessment Notes Nov, Chronic venous insufficiency (ICD-10 - I87.2) [facility] Other Evaluation note 11-30-2022 Note Date & Type Note Facility 11-30-2022 Evaluation note Encounter Date Diagnosis Assessment Notes Nov, Medicare annual wellness visit, subsequent (ICD-10 - Z00.00) Personalized health advice was given to the beneficiary including a written plan for screenings discussed and provided. Advanced care planning reviewed and/or information given as requested. Additional counseling was provided here today in regards to, [ ]. The above visit was performed by [ ], under direct supervision of [ ]. Document reviewed and amended by provider signed below. Nov, Controlled type 2 diabetes mellitus with hyperglycemia, without long-term current use of insulin (ICD-10 - E11.65) This patient is following a comprehensive diabetic treatment plan. They are checking their feet daily for calluses and nonhealing ulcers. They are being seen for yearly dilated eye examinations. Goals: SBP less than 130, LDL less than 100, FBS less than 140, A1C less than 7%. They are checking their BS daily, will which are reviewed at the office visit. Continue regular routine monitoring of A1C,] Microalbumin, Dilated eye exam and Foot exam Nov, Essential (primary) hypertension (ICD-10 - I10) This patient is instructed to consume a healthy, low-fat, low-salt diet. They are also encouraged to continue exercise to achieve/maintain a normal BMI. Nov, Type 2 diabetes mellitus with diabetic polyneuropathy, without long-term current use of insulin (ICD-10 - E11.42) Inspect feet daily for cuts and calluses.Recommen d diabetic shoes and inserts to prevent callus formation.Fall precautions. Nov, Chronic venous insufficiency (ICD-10 - I87.2) Avoid salt and elevate lower extremities, support stockings, inspect legs and feet daily for blisters and ulcerations. Nov, Hyperlipidemia, mixed (ICD-10 - E78.2) Instructed on diet and exercise with continued statin therapy.Discussed the beneficial effects of lowering cholesterol in reducing the risk for cerebrovascular and cardiovascular disease. Nov, Screening PSA (prostate specific antigen) (ICD-10 - Z12.5) Yearly ALISTAIR and PSA Nov, High risk medication use (ICD-10 - Z79.899) Check labs: CBC, ALT [employer] Other Evaluation note 07-03-2022 Note Date & Type Note Facility 07-03-2022 Evaluation note Encounter Date Diagnosis Assessment Notes Jun, Controlled type 2 diabetes mellitus with hyperglycemia, without long-term current use of insulin (ICD-10 - E11.65) This patient is following a comprehensive diabetic treatment plan. They are checking their feet daily for calluses and nonhealing ulcers. They are being seen for yearly dilated eye examinations. Goals: SBP less than 130, LDL less than 100, FBS less than 140, AC and A1C less than 7%. They are checking their BS daily, will which are reviewed at the office visit. A1C: due] Jun, Essential (primary) hypertension (ICD-10 - I10) This patient is instructed to consume a healthy, low-fat, low-salt diet. They are also encouraged to continue exercise to achieve/maintain a normal BMI. Patient is instructed on home BP measurements: - rest for 5 minutes w/o talking- positioned w/ feet on floor and arm supported- average best 2/3 readings w/ goal < 135-85 Jun, Type 2 diabetes mellitus with diabetic polyneuropathy, without long-term current use of insulin (ICD-10 - E11.42) Inspect feet daily for cuts and calluses.Recommen d diabetic shoes and inserts to prevent callus formation.Fall precautions. Jun, Ulcer of left lower extremity, limited to breakdown of skin (ICD-10 - L97.921) Keep clean and dry, cleanse daily w/ soap and water. Use OTC SUBHA daily Notify office w/ increased pain, erythema or drainage Jun, Chronic venous insufficiency (ICD-10 - I87.2) Avoid salt and elevate lower extremities, support stockings, inspect legs and feet daily for blisters and ulcerations. Jun, Hyperlipidemia, mixed (ICD-10 - E78.2) Instructed on diet and exercise with continued statin therapy.Discussed the beneficial effects of lowering cholesterol in reducing the risk for cerebrovascular and cardiovascular disease. Jun, Morbid exogenous obesity (ICD-10 - E66.01) This patient has been instructed on a low-fat, high-fiber diet. They are instructed to reduce calories, portion sizes and snacks. It is recommended that they exercise for 30 minutes, 3-5 times weekly. Jun, Tachycardia, paroxysmal (ICD-10 - I47.9) Monitor for now Hydrate, avoid stimulants and NSAIDs. Notify office if prolonged episodes of irregular pulse Jun, Other Symptoms [employer] Other Evaluation note Note Date & Type Note Facility Evaluation note No Information [facility] [employer] Other Evaluation note Note Date & Type Note Facility Evaluation note Diagnosis Onset Date Chronic kidney disease acute Chronic venous insufficiency acute Hyperlipidemia, mixed acute Hypertension acute Obesity acute Type 2 diabetes mellitus with hyperglycemia acute [facility] Work Phone: Evaluation note Note Date & Type Note Facility Evaluation note Diagnosis Onset Date Chronic kidney disease acute Chronic venous insufficiency acute Hyperlipidemia, mixed acute Hypertension acute Medicare annual wellness visit, subsequent acute Obesity acute Screening PSA (prostate specific antigen) acute Type 2 diabetes mellitus with hyperglycemia acute [facility] Work Phone: History general Narrative - Reported Note Date & Type Note Facility History general Narrative - Reported Type Medical History High risk medication use Medical History Adenomatous polyp of descending colon Medical History Benign prostatic hyp erplasia with lower urinary tract symptoms Medical History Chronic venous insufficiency Medical History Hyperlipidemia, mixed Medical History Essential (primary) hypertension Medical History Controlled type 2 di abetes mellitus with hyperglycemia, without long-term current use of insulin Medical History Tachycardia, paroxysmal Surgical History COLONOSCOPY Surgical History RIGHT INGUINAL HERNIA Hospitalization History SEE SURGICAL HX [employer] Other Summary Purpose Family History Relationship Condition Age at Onset Recorded Date/T anmol Not Specified Unknown family medical history Unknown Advance Directives Advance Directive Response Recorded Date/ Time Advance Directives No January 01, 2021 2:12pm Chief Complaint and Reason for Visit Chief Complaint 6 month Reason for Visit Chronic kidney disea se Chronic venous insufficiency Hyperlipidemia, mixed Hypertension Obesity Type 2 diabetes mellitus with hyperglycemia Chief Complaint wellness/flu shot Reason for Visit Chronic kidney disea se Chronic venous insufficiency Hyperlipidemia, mixed Hypertension Medicare annual wellness visit, subsequent Obesity Screening PSA (prostate specific antigen) Type 2 diabetes mellitus with hyperglycemia Additional Source Comments (unrecognized sect ion and content) No Status Records FoundNo Status Records FoundNo Status Records Found INFORMATION SOURCE (unrecogn ized section and content) DATE CREATED AUTHOR 01/11/2019 [facility] DATE CREATED AUTHOR AUTHOR'S ORGANIZ ATION 04/01/2021 [facility] DATE CREATED AUTHOR AUTHOR'S ORGANIZ ATION 07/10/2022 [facility] REASON FOR VISIT (unrecogniz ed section and content) 6 month Follow upWELLNESSLab ResultsRefill Care Teams (unrecognized sec tion and content) Team Status: Active Member Role Status Dates Carlos Raymundo DO Primary Care Provider Active Team Status: Inactive Member Role Status Dates Carlos Raymundo DO Primary Care Provide r, Attending Provider Active Start: July 05, 2023 End: July 05, 2023 Team Status: Inactive Member Role Status Dates Carlos Raymundo DO Primary Care Provide r, Attending Provider Active Start: December 02, 2023 End: December 02, 2023 Goals (unrecognized section and content) Goals may be documented in a n alternate section FOR RECORDS PERTAINING TO PATIENTS WHO ARE OR HAVE BEEN ENROLLED IN A CHEMICAL DEPENDENCY/SUBSTANCEABUSE PROGRAM, SOME INFORMATION MAY BE OMITTED. This clinical summary was aggregated from multiple sources. Caution should be exercised in using it in the provision of clinical care. This summary normalizes information from multiple sources, and as a consequence, information in this document may materially change the coding, format and clinical context of patient data. In addition, data may be omitted in some cases. CLINICAL DECISIONS SHOULD BE BASED ON THE PRIMARY CLINICAL RECORDS. [employer] [facility]. provides no warranty or guarantee of the accuracy or completeness of information in this document.
[2023-12-13 12:23] LABS: Basophils Absolute Auto 0.1 10^3/uL (0.0-0.1); Basophils Percent Auto 0.7 % (0.2-2.0); Eosinophils Absolute Auto 0.2 10^3/uL (0.0-0.7); Eosinophils Percent Auto 2.7 % (0.9-7.0); Hematocrit 47.3 % (42.0-54.0); Hemoglobin 15.2 g/dL (14.0-18.0); Immature Granulocytes Abs Auto 0.05 10^3/uL (0.00-0.03); Immature Granulocytes Pct Auto 0.7 % (0.0-0.5); Lymphocytes Absolute Auto 1.4 10^3/uL (1.2-3.8); Lymphocytes Percent Auto 20.2 % (20.5-60.0); Mean Corpuscular HGB Conc 32.1 g/dL (29.9-35.2); Mean Corpuscular Hemoglobin 28.7 pg (25.9-34.0); Mean Corpuscular Volume 89.4 fL (80.0-94.0); Mean Platelet Volume 10.7 fL (9.5-13.5); Monocytes Absolute Auto 0.6 10^3/uL (0.3-0.8); Monocytes Percent Auto 8.8 % (1.7-12.0); Neutrophils Absolute Auto 4.7 10^3/uL (1.4-6.5); Neutrophils Percent Auto 66.9 % (43.0-75.0); Platelet Count 191 10^3/uL (150-450); Red Blood Count 5.29 10^6/uL (4.70-6.10); Red Cell Distribution Width 13.7 % (11.0-15.0)
[2023-12-13 12:47] LABS: Alanine Aminotransferase 33 U/L (16-63); Albumin Level 3.5 g/dL (3.4-5.0); Alkaline Phosphatase 70 U/L (46-116); Aspartate Amino Transferase 16 U/L (15-37); BUN Creatinine Ratio 13.2; Bilirubin Total 0.5 mg/dL (0.2-1.0); Calcium 9.4 mg/dL (8.5-10.1); Carbon Dioxide 29.1 mmol/L (21.0-32.0); Chloride 101 mmol/L (98-107); Chol HDL Ratio 3.7; Cholesterol 170 mg/dL (<=200); Estimated GFR (African America >60 (>=60 mL/min/1.73m^2); Estimated GFR (Non-African Ame 51 (>=60 mL/min/1.73m^2); Globulin 3.4 g/dL; Glucose 152 mg/dL (74-106); HDL Cholesterol 46 mg/dL (40-60); Potassium 4.1 mmol/L (3.5-5.1); Sodium 137 mmol/L (136-145); Total Protein 6.9 g/dL (6.4-8.2); Triglycerides 222 mg/dL (<=150); VLDL CHOLESTEROL 44.4 mg/dL
[2023-12-13 14:04] LABS: Microalbumin Urine Random 2.4 mg/dL (<=30.0)
[2023-12-13 14:17] LABS: Prostate Specific Antigen Scrn 1.81 ng/mL (<=4.00)
== END 2023-12-13 12:02 | disposition home or self-care (01) ==
LOC: LAB 12:04
PROVIDERS: Visit Provider Internal Medicine
DX: I12.9 Hypertensive chronic kidney disease with stage 1 through stage 4 chronic kidney disease, or unspecified chronic kidney disease (principal); N18.9 Chronic kidney disease, unspecified; E11.65 Type 2 diabetes mellitus with hyperglycemia; Z12.5 Encounter for screening for malignant neoplasm of prostate; E78.2 Mixed hyperlipidemia
CPT/HCPCS: 36415; 80053; 80061; 82043; 85025; G0103

== ENCOUNTER 2024-07-03 09:59 | Outpatient (OUT) | payer MEDICARE, SELFPAY ==
[2024-07-03 11:06] LABS: Estimated Average Glucose 240 mg/dL
== END 2024-07-03 10:00 | disposition home or self-care (01) ==
LOC: LAB 10:02
PROVIDERS: PCP Internal Medicine; Visit Provider Internal Medicine
DX: E11.65 Type 2 diabetes mellitus with hyperglycemia (principal)
CPT/HCPCS: 36415; 83036

== ENCOUNTER 2024-12-04 11:01 | Outpatient (OUT) | payer MEDICARE, SELFPAY ==
--- OUTSIDE RECORDS SUMMARY | 2024-12-04 11:05 | XMS_ITS | Clinical Summary ---
Author Organization [facility] Address [address] [place] [address] Care Team Providers Care [employer] Name Role Phone Unavailable Primary Care Provider Unavailabl e Social History Tobacco Use Types Packs/Day Years Used Date Smoking Tobacco: Never Assessed Sex and Gender Information Value Date Recorded Sex Assigned at Not on file Legal Sex Male 9:45 PM EDT Gender Identity Not on file Sexual Orientation Not on file Last Filed Vital Signs Vital Sign Reading Time Taken Comments Blood Pressure 111/94 12/09/2018 12:00 PM EDT Pulse - - Temperature - - Respiratory Rate - - Oxygen Saturation - - Inhaled Oxygen Concentration - - Weight 119 kg (263 lb) 01/04/2019 12:00 PM EDT Height 167.6 cm (5' 6 ) 01/04/2019 12:00 PM EDT Body Mass Index 42.45 01/04/2019 12:00 PM EDT Plan of Treatment Not on [place] [id number]
[2024-12-04 11:29] LABS: Hematocrit 45.8 % (42.0-54.0); Hemoglobin 14.9 g/dL (14.0-18.0); Immature Granulocytes Abs Auto 0.05 10^3/uL (0.00-0.03); Immature Granulocytes Pct Auto 0.6 % (0.0-0.5); Lymphocytes Absolute Auto 2.0 10^3/uL (1.2-3.8); Mean Corpuscular HGB Conc 32.5 g/dL (29.9-35.2); Mean Corpuscular Hemoglobin 29.2 pg (25.9-34.0); Mean Corpuscular Volume 89.6 fL (80.0-94.0); Platelet Count 151 10^3/uL (150-450); Red Blood Count 5.11 10^6/uL (4.70-6.10); White Blood Count 8.8 10^3/uL (4.0-11.0)
[2024-12-04 12:05] LABS: Alanine Aminotransferase 29 U/L (16-63); Albumin Globulin Ratio 1.0; Albumin Level 3.6 g/dL (3.4-5.0); Alkaline Phosphatase 73 U/L (46-116); Anion Gap 12.6; Aspartate Amino Transferase 17 U/L (15-37); Blood Urea Nitrogen 29.0 mg/dL (7.0-18.0); Calcium 9.1 mg/dL (8.5-10.1); Carbon Dioxide 27.6 mmol/L (21.0-32.0); Chloride 104 mmol/L (98-107); Cholesterol 149 mg/dL (<=200); Estimated GFR (African America >60 (>=60 mL/min/1.73m^2); Estimated GFR (Non-African Ame >60 (>=60 mL/min/1.73m^2); Globulin 3.6 g/dL; Glucose 64 mg/dL (74-106); HDL Cholesterol 40 mg/dL (40-60); Potassium 4.2 mmol/L (3.5-5.1); Sodium 140 mmol/L (136-145); Total Protein 7.2 g/dL (6.4-8.2); Triglycerides 168 mg/dL (<=150); VLDL CHOLESTEROL 33.6 mg/dL
[2024-12-04 12:06] LABS: Microalbum Creatinine Ratio Ur 22.3 mg/g (0.0-29.9)
== END 2024-12-04 11:02 | disposition home or self-care (01) ==
LOC: LAB 11:01
PROVIDERS: PCP Internal Medicine; Visit Provider Internal Medicine
DX: E11.65 Type 2 diabetes mellitus with hyperglycemia (principal); Z79.4 Long term (current) use of insulin; E11.22 Type 2 diabetes mellitus with diabetic chronic kidney disease; N18.31 Chronic kidney disease, stage 3a; E78.2 Mixed hyperlipidemia; Z12.5 Encounter for screening for malignant neoplasm of prostate; I12.9 Hypertensive chronic kidney disease with stage 1 through stage 4 chronic kidney disease, or unspecified chronic kidney disease
CPT/HCPCS: 36415; 80053; 80061; 82043; 82570; 83036; 85025; G0103